=== PATIENT | female | born 1955 | race Caucasian/White ===

== ENCOUNTER → 2019-09-20 10:54 | Outpatient (POV) | payer BC, SELFPAY ==
[2019-09-20 11:38] VITALS: BP 144/75; PULSE 67; RESP 18; O2SAT 98; BMI 28.1
--- NOTE | 2019-09-20 12:27 | HMH.PMCON ---
Assessment and Plan (1) Bilateral sacroiliitis Current visit: Yes Status: Chronic Category: Medical Code(s): M46.1 - Sacroiliitis, not elsewhere classified - Assessment and plan all Dx Assessment and Plan for all problems:: Patient does have notable point tenderness noted over bilateral SI joint injections. She also has a positive compression test, distraction test, and Joaquina test. We will schedule the patient for bilateral SI joint injections. I think she will get some relief with this. We will also order the patient diclofenac 75 mg 1 tablet p.o. twice daily. We will see her back in the clinic following her injections to see if she gets relief. She has been instructed to contact the clinic if she has any concerns prior to her next appointment. Dr. Mariee has reviewed this note and agrees with this plan of care. This note was dictated using voice recognition software and make contain errors or omissions. HPI - Data of Consult Consult date: 09/20/19 Requesting Physician: Xochitl Mejia APRN Primary Care Provider: Anand Valentin MD - Consult Narrative Reason for consult: Low back pain, bilateral leg pain History of present illness: Ms. Miller is a 64 year old female who presents today for consultation of low back pain with radiation into bilateral legs. Patient was referred by Dr. Desouza's office. Patient did undergo an x-ray which Dr. Desouza informed her that she does have arthritis noted to her is. Patient says she is never had SI joint problems in the past. She does complain of pain with prolonged standing and walking. Patient says that she has a job for which she has received. Patient says her pain progressively gets worse throughout the day. He says that the pain starts in her low back and radiates to her bilateral legs behind her knees. Patient says she has tried Aleve [id number] and has. She rates her pain a 6 out of 10 today. Patient has not had any type of injective therapy. She has tried ice and heat therapies. Patient has also continued with a home stretching program. CC: Xochitl Mejia APRN [facility] History I have reviewed the patient's past medical history: Yes Medical History: Reports:: Palpitations *Have you ever received a pneumonia vaccine?: Yes *Have you received a flu vaccine this season?: Yes Laterality Cases: Bilateral: Tonsillectomy Other Surgeries: Yes: Cholecystectomy, Colonoscopy - *Social History Smoking Status: Never smoker Alcohol Intake: never Alcohol Intake Frequency:: holidays/special occasions only *Occupational Status:: other Housing: other Household Members: none *Travel in the last 8 weeks: None Family Hx:: Cancer Review of Systems - Review of Systems Review of Systems General: No recent weight changes, no fever, no sleep disturbances Respiratory: No cough, no shortness of air, no recurring pulmonary infections Cardiovascular/peripheral vascular: No chest pain, no palpitations, no edema, no shortness of breath Gastrointestinal: No new onset incontinence, normal bowel movements reported Genitourinary: No new onset incontinence Musculoskeletal: Back pain, bilateral leg pain Psychiatric: Normal mood/affect Neurological: [Denies weakness in extremities], [denies balance issues] Meds Home Medications Medication Instructions Recorded Confirmed Type predniSONE [Prednisone 5mg 5 mg PO DAILY 12 Days #39 tab 09/07/19 09/13/19 Rx Tab] Allergies Allergy/AdvReac Type Severity Reaction Status Date / Time adhesive tape Allergy Verified 09/13/19 14:42 Penicillins Allergy Verified 09/13/19 14:42 Objective Vital signs: Pulse Resp BP Pulse Ox 67 18 144/75 H 98 09/20/19 11:38 09/20/19 11:38 09/20/19 11:38 09/20/19 11:38 Narrative: Physical exam General: Alert and oriented x3, no acute distress, pleasant and cooperative, [on room air] Lungs: Respirations even and unlabored, symmetrical chest expansion
--- NOTE | 2019-09-20 12:30 | P.CONS_ITS ---
Assessment and Plan (1) Bilateral sacroiliitis Current visit: Yes Status: Chronic Category: Medical Code(s): M46.1 - Sacroiliitis, not elsewhere classified - Assessment and plan all Dx Assessment and Plan for all problems:: Patient does have notable point tenderness noted over bilateral SI joint injections. She also has a positive compression test, distraction test, and Joaquina test. We will schedule the patient for bilateral SI joint injections. I think she will get some relief with this. We will also order the patient diclofenac 75 mg 1 tablet p.o. twice daily. We will see her back in the clinic following her injections to see if she gets relief. She has been instructed to contact the clinic if she has any concerns prior to her next appointment. Dr. Mariee has reviewed this note and agrees with this plan of care. This note was dictated using voice recognition software and make contain errors or omissions. HPI - Data of Consult Consult date: 09/20/19 Requesting Physician: Xochitl Mejia APRN Primary Care Provider: Anand Valentin MD - Consult Narrative Reason for consult: Low back pain, bilateral leg pain History of present illness: Ms. Miller is a 64 year old female who presents today for consultation of low back pain with radiation into bilateral legs. Patient was referred by Dr. Desouza's office. Patient did undergo an x-ray which Dr. Desouza informed her that she does have arthritis noted to her is. Patient says she is never had SI joint problems in the past. She does complain of pain with prolonged standing and walking. Patient says that she has a job for which she has received. Patient says her pain progressively gets worse throughout the day. He says that the pain starts in her low back and radiates to her bilateral legs behind her knees. Patient says she has tried Aleve [id number] and has. She rates her pain a 6 out of 10 today. Patient has not had any type of injective therapy. She has tried ice and heat therapies. Patient has also continued with a home stretching program. CC: Xochitl Mejia APRN [facility] History I have reviewed the patient's past medical history: Yes Medical History: Reports:: Palpitations *Have you ever received a pneumonia vaccine?: Yes *Have you received a flu vaccine this season?: Yes Laterality Cases: Bilateral: Tonsillectomy Other Surgeries: Yes: Cholecystectomy, Colonoscopy - *Social History Smoking Status: Never smoker Alcohol Intake: never Alcohol Intake Frequency:: holidays/special occasions only *Occupational Status:: other Housing: other Household Members: none *Travel in the last 8 weeks: None Family Hx:: Cancer Review of Systems - Review of Systems Review of Systems General: No recent weight changes, no fever, no sleep disturbances Respiratory: No cough, no shortness of air, no recurring pulmonary infections Cardiovascular/peripheral vascular: No chest pain, no palpitations, no edema, no shortness of breath Gastrointestinal: No new onset incontinence, normal bowel movements reported Genitourinary: No new onset incontinence Musculoskeletal: Back pain, bilateral leg pain Psychiatric: Normal mood/affect Neurological: [Denies weakness in extremities], [denies balance issues] Meds Home Medications Medication Instructions Recorded Confirmed Type predniSONE [Prednisone 5mg 5 mg PO DAILY 12 Days #39 tab 09/07/19 09/13/19 Rx Tab] Allergies All
== END ==
PROVIDERS: PCP Family Medicine; Visit Provider Clinical Nurse Specialist Family Health
DX: M46.1 Sacroiliitis, not elsewhere classified (principal)
CPT/HCPCS: 99202

== ENCOUNTER → 2019-10-25 11:32 | Outpatient (POV) | payer BC, SELFPAY ==
[2019-10-25 12:42] VITALS: BP 147/69; PULSE 85; RESP 18; O2SAT 99; BMI 28.1
--- NOTE | 2019-10-25 12:48 | P.CONS_ITS ---
[facility] Pain Management SOAP Note Subjective:: She is a pleasant 64-year-old white female who presents today for follow-up after her bilateral SI joint injections. She rates her pain a 2 out of 10 she states she is doing well at this time. She like to follow-up on an as-needed basis. ROS General: no recent weight change, no fever, no sleep disturbances Respiratory: no cough, no shortness of air, no recurring pulmonary infections Cardiovascular/Peripheral Vascular: No chest pain, No palpitations, no edema, no shortness of breath. Gastrointestinal: no new onset incontinence, normal bowel movements reported Genitourinary: no new onset incontinence Musculoskeletal: SI joint pain Psychiatric: normal mood/ affect, Neurological: [denies new onset weakness in extremities], [denies new onset balance issues] Objective:: Physical Exam General: Alert and oriented x3, no acute distress, pleasant and cooperative, [on room air] Lungs: Resps E/U, Symmetrical chest expansion, Eyes: PERRL Musculoskeletal: Flexion and extension of lumbar spine somewhat guarded secondary to pain, deep tendon reflexes normal, strength in upper and lower extremities [5/5], slightly antalgic gait noted, positive Joaquina test Gage's test and SI joint compression test bilaterally Neurological: speech clear, clinical research analyst equal, no gross sensory deficits Assessment:: Sacroiliitis Plan:: Patient is continuing to wear her SI joint belt. Overall doing well. Patient is in a follow-up as needed. She is to call our office if she has any issues. Dr. Mariee has reviewed this note and agrees with this plan of care. This note was dictated using voice recognition software and may contain errors or omissions [facility] History I have reviewed the patient's past medical history: Yes Medical History: Reports:: Palpitations Denies:: Cancer, Diabetes Mellitus Type 1, Diabetes Mellitus Type 2, MRSA, Seizures *Have you ever received a pneumonia vaccine?: Yes *Have you received a flu vaccine this season?: Yes Laterality Cases: Bilateral: Tonsillectomy Other Surgeries: Yes: Cholecystectomy, Colonoscopy Amputation: No Fractures: No - *Social History Smoking Status: Never smoker Alcohol Intake: never Alcohol Intake Frequency:: holidays/special occasions only *Occupational Status:: other Housing: other Household Members: none *Travel in the last 8 weeks: None Family Hx:: Cancer
== END ==
PROVIDERS: PCP Nurse Practitioner; Visit Provider Clinical Nurse Specialist Family Health
DX: M46.1 Sacroiliitis, not elsewhere classified (principal)
CPT/HCPCS: 99212

== ENCOUNTER → 2021-08-02 10:32 | Outpatient (CLI) | payer MEDICARE, OTHER, SELFPAY ==
--- NOTE | 2021-08-02 10:34 | MM_ITS ---
PROCEDURE: MM DIG SCREENING MAMM BI W/CAD Digital Breast Tomosynthesis Included CLINICAL INDICATION: SCREENING COMPARISON: [facility] TOMOSYNTESIS SCREEN from 04/21/2017 [facility] MOBILE BREAST TOMOSYNTHESIS SCREEN from 04/22/2018 [facility] CELESTE DIGITAL SCREEN BILATERAL from 05/04/2019 TECHNIQUE: Standard CC and MLO images and 3D Tomosynthesis was obtained. R2 CAD reviewed. FINDINGS: There are scattered areas of fibroglandular density No suspicious appearing mass, malignant-appearing microcalcification, architectural distortion, or skin thickening. IMPRESSION: No change with no evidence of malignancy BI-RAD Category: 1 Negative FOLLOW-UP: 1 YR 1 Year Follow-up (A letter has been sent to the patient regarding results of the study.) Dictated by: Zach Rubio MD 08/15/2021 11:14 Zach Rubio MD in [place] 08/15/2021 11:14
== END ==
PROVIDERS: PCP Nurse Practitioner Family; Visit Provider Nurse Practitioner Family
DX: Z12.31 Encounter for screening mammogram for malignant neoplasm of breast (principal)
CPT/HCPCS: 77063; 77067

== ENCOUNTER → 2021-08-08 08:46 | Outpatient (CLI) | payer MEDICARE, OTHER, SELFPAY ==
--- NOTE | 2021-08-08 08:53 | XR_ITS ---
PROCEDURE: XR DEXA AXIAL SKELETON CLINICAL HISTORY: POST-MENOPAUSAL COMPARISON: No exams were available for comparison FINDINGS: The right hip BMD is 0.640 with a T-score of -1.9. The left hip BMD is 0.662 with a T-score of -2.3. The lumbar spine BMD is 0.863 with a T-score of -1.7. IMPRESSION: This patient is considered osteopenic according to the World Health Organization criteria. Bone density is between 10 and 25 percent below young normal. Fracture risk is moderate. Treatment is advised. Based on these results a follow-up exam is recommended in 2 year. Dictated by: Zach Rubio MD 08/08/2021 14:25 Zach Rubio MD in [facility] 08/08/2021 14:25
== END ==
PROVIDERS: PCP Nurse Practitioner Family; Visit Provider Nurse Practitioner Family
DX: Z13.820 Encounter for screening for osteoporosis (principal); Z78.0 Asymptomatic menopausal state
CPT/HCPCS: 77080

== ENCOUNTER → 2021-08-26 09:42 | Outpatient (CLI) | payer MEDICARE, OTHER, SELFPAY | PROVIDERS: Visit Provider Surgery | DX: Z01.812 Encounter for preprocedural laboratory examination (principal); Z11.52 Encounter for screening for COVID-19; Z12.11 Encounter for screening for malignant neoplasm of colon | CPT/HCPCS: C9803; U0003; U0005 ==

== ENCOUNTER 2021-08-28 08:23 | Day surgery (SDC) | payer MEDICARE, OTHER, SELFPAY ==
[2021-08-27 12:00] VITALS: BMI 28.1
[2021-08-28 08:38] VITALS: BP 144/84; PULSE 74; RESP 18; TEMP 36.8; O2SAT 98
--- NOTE | 2021-08-28 08:49 | HMH.ANESCL ---
[facility] Anesthesia Checklist - Patient Identification Patient Identification: Arm Band - Structural Data Admitted From: Home Planned Operative Procedure/s: Colonoscopy Consent for Planned Operative Procedure(s) Verified: Yes - NPO Status Verified Time NPO: 00:00 - Additional verifications Anesthesia Reactions: No - Airway Assessment C-Spine Mobility Assessed: Yes TMJ Mobility Assessed: Yes Dentition: Good Dentition - Neurological Assessment Level of Consciousness: Awake Hx Seizures: No Numbness or tingling in extremities: No - Anesthesia Plan Anesthesia Risk discussed: Yes Anesthesia Plan: Verified ASA Class: I Anesthesia Type: MAC [facility] History I have reviewed the patient's past medical history: Yes Medical History: Reports:: Palpitations Denies:: Cancer, Diabetes Mellitus Type 1, Diabetes Mellitus Type 2, Internal Pacemaker, MRSA, Seizures *Have you ever received a pneumonia vaccine?: Yes *Have you received a flu vaccine this season?: No Anesthesia experience/problems:: None Laterality Cases: Bilateral: Tonsillectomy Other Surgeries: Yes: Cholecystectomy, Colonoscopy. No: Pacemaker Amputation: No Fractures: No - *Social History Last grade of school completed: Some college Smoking Status: Never smoker Alcohol Intake: current Alcohol Intake Frequency:: holidays/special occasions only Substance Use Type: denies use *Occupational Status:: retired Housing: house Household Members: none *Travel in the last 8 weeks: None Family Hx:: Cancer
[2021-08-28 09:36] VITALS: O2SAT 98
[2021-08-28 10:14] VITALS: BP 90/48; PULSE 61; RESP 14; TEMP 36.1; O2SAT 94
--- NOTE | 2021-08-28 10:20 | HMH.SCOPE ---
- Procedure: Date: 08/28/21 Patient Date of :: 1955 Procedure Performed:: Total colonoscopy with biopsy Indications:: Patient is a 66-year-old female. She previously had colonoscopy about 22 years ago. She has been asymptomatic regarding symptoms of melena or rectal bleeding. However, her father was diagnosed with colon cancer in his 60s. She was scheduled for screening colonoscopy. Performing Provider:: Justin Fournier MD Referring Provider:: Flower Burgos Sedation:: MAC sedation Procedure:: Patient was positioned in lateral decubitus position. Digital examination was performed which was unremarkable. Variable stiffness Olympus colonoscope was inserted via the anus. It was advanced to the cecum with out significant difficulty. Colonic preparation was excellent. The ileocecal valve and appendiceal orifice were clearly identified. Colonoscope was slowly withdrawn through the colon with careful surveillance. In the descending colon there was a subtle red spot which likely was AVM versus early polyp. This was removed with cold biopsy forceps. Colonoscope was withdrawn through the remainder of the colon. Retroflexion within the rectum revealed no evidence of any pathologic internal hemorrhoids. Colonoscope was withdrawn. Findings:: Relatively unremarkable colonoscopy Possible AVM in descending colon, biopsied Recommendations:: Repeat colonoscopy 5 years. However, if biopsy is adenomatous recommend 3-year follow-up Complications:: None immediately apparent Estimated blood obtained (mL): 1
[2021-08-28 10:29] VITALS: BP 103/53; PULSE 60; RESP 16; TEMP 36.1; O2SAT 100
[2021-08-28 10:49] VITALS: BP 116/48; PULSE 56; RESP 16; TEMP 36.1; O2SAT 100
== END 2021-08-28 10:55 | disposition home or self-care (01) ==
LOC: OUTP 08:25
PROVIDERS: PCP Nurse Practitioner Family; Visit Provider Surgery
PROC: 0DJD8ZZ Inspection of Lower Intestinal Tract, Via Natural or Artificial Opening Endoscopic (ICD-10-PCS; principal; 2021-08-28 09:30)
DX: Z12.11 Encounter for screening for malignant neoplasm of colon (principal); K63.5 Polyp of colon; K63.9 Disease of intestine, unspecified; Z80.0 Family history of malignant neoplasm of digestive organs; R00.2 Palpitations; Z90.49 Acquired absence of other specified parts of digestive tract; Z88.0 Allergy status to penicillin; Z88.8 Allergy status to other drugs, medicaments and biological substances
CPT/HCPCS: 45380; 88305